=== PATIENT | female | born 1945 | race Caucasian/White ===

== ENCOUNTER 2018-05-10 06:29 | Inpatient (IN) | payer MEDICARE, MEDICAID ==
--- NOTE | 2018-05-10 07:31 | ED Physician Chart ---
ED Chief Complaint/HPI - Patient Information Date Seen:: 05/10/18 Time Seen:: 06:30 Chief Complaint:: Abdominal Pain History of Present Illness:: onset x 2 days of intermittent, diffuse, crampy abdominal pain, N/V/D; no report of trauma, H/As, S/T, neck pain, C/P, SOB, A/C, bleeding, or urinary s/s Allergies:: Allergies Allergy/AdvReac Type Severity Reaction Status Date / Time hydrocodone Allergy Verified 05/10/18 06:41 Vitals:: Vital Signs - 8 hr 05/10/18 06:30 Temp 98.2 F HR 86 RR 18 BP 131/69 O2 Sat % 99 Historian:: Patient, EMS Review:: Nurse's Note Reviewed, EMS run form Reviewed ED Review of Systems - Review of Systems General/Constitutional: No fever, No chills, No weight loss, No weakness, No diaphoresis, No edema, No loss of appetite Skin: No skin lesions, No rash, No bruising Head: No headache, No light-headedness Eyes: No loss of vision, No pain, No diplopia ENT: No earache, No nasal drainage, No sore throat, No tinnitus Neck: No neck pain, No swelling, No thyromegaly, No stiffness, No mass noted Cardio Vascular: No chest pain, No palpitations, No PND, No orthopnea, No edema Pulmonary: No SOB, No cough, No sputum, No wheezing GI: Nausea, Vomiting, Diarrhea, Pain, No melena, No hematochezia, No constipation, No hematemesis G/U: No dysuria, No frequency, No hematuria, No nacturia Drink Mixer: No vaginal discharge, No abnormal vaginal bleed, No contraction Musculoskeletal: No bone or joint pain, No back pain, No muscle pain Endocrine: No polyuria, No polydipsia Psychiatric: No prior psych history, No depression, No anxiety, No suicidal ideation, No homicidal ideation, No auditory hallucination, No visual hallucination Hematopoietic: No bruising, No lymphadenopathy Allergic/Immuno: No urticaria, No angioedema Neurological: No syncope, No focal symptoms, No weakness, No paresthesia, No headache, No seizure, No dizziness, No confusion, No vertigo ED Past Medical History - Past Medical History Obtainable: Yes Past Medical History: HTN, DM, CAD, CVA/TIA, Dyslipidemia, Seizures, Arthritis Family History: HTN Social History: Non Smoker, No Alcohol, No Drug Use, , Care Facility Surgical History: None Psychiatricy History: None Medication: Reviewed Family Medical History - Family Member Mother History Unknown: Yes ED Physical Exam - Physical Examination General/Constitutional: Awake, Well-developed, well-nourished, Alert, No distress, GCS 15, Non-toxic appearing, Ambulatory Head: Atraumatic Eyes: Lids, conjuctiva normal, PERRL, EOMI Skin: Nl inspection, No rash, No skin lesions, No ecchymosis, Well hydrated, No lymphadenopathy ENMT: External ears, nose nl, Nasal exam nl, Lips, teeth, gums nl, Oropharynx nl , Tonsils nl Neck: Nontender, Full ROM w/o pain, No JVD, No nuchal rigidity, No bruit, No mass, No stridor Other Neck comments:: no meningeal signs Respiratory: Nl effort/Exclusion, Clear to Auscultation, No Wheeze/Rhonchi/Rales Cardio Vascular: RRR, No murmur, gallop, rubs, NL S1 S2, Carotid/Femoral/Distal pulses equal bilaterally GI: No tenderness/rebounding/guarding, No organomegaly, No hernia, Normal BS's, Nondistended, No mass/bruits, No McBurney tenderness, Rectum exam nl Other GI comments:: no pulsatile masses : No CVA tenderness Extremities: No tenderness or effusion, Full ROM, normal strength in all extremities, No edema, Normal digits & nails Neuro/Psych: Alert/oriented, DTR's symmetric, Normal sensory exam, Normal motor strength, Judgement/insight normal, Mood normal, Normal gait, No focal deficits Misc: Normal back, No paraspinal tenderness ED Labs/Radiology/EKG Results - Lab Results Comments:: Reviewed - Radiology Results Comments:: + Gallstones; + Right Renal Stones - EKG Interpretations EKG Time:: 07:57 Rate & Rhythm: 80; NSR Comments:: non-specific st-t changes ED Septic Shock - . Is Septic Shock (SBP<90, OR Lactate>4 mmol\L) present?: No - <6hrs of presentation: Vital Signs: Vital Signs - 8 hr 05/10/18 06:30 Temp 98.2 F HR 86 RR 18 BP 131/69 O2 Sat % 99 ED Reassessment (Disposition) - Reassessment Reassessment Condition:: Improved - Diagnosis Diagnosis:: Abdominal Pain; N/V/D; AGE; Gastroenteritis; Cholelithiasis; Nephrolithiasis; Dehydration; Hyponatremia - Aftercare/Follow up Instructions Aftercare/Follow-Up Instructions:: Counseled pt regarding lab results/diagnosis & need follow up, Counseled pt & family regarding lab results/diagnosis & need follow up - Patient Disposition Discharge/Transfer:: Acute Care w/in this hosp Accepting Physician:: Dr. Dominguez Time Called:: 824 Time Responded:: 08:25 Admitted to:: Telemetry Spoke to:: Dr. Dominguez Admitting Medical Physician:: Dr. Dominguez Condition at Disposition:: Stable, Improved
[2018-05-10] MEDS ORDERED: Sodium Chloride 0.9% 1,000 ML IV ONE (07:33)
[2018-05-10 07:56] LABS: % BASOPHILS 3.8 % (0.0-2.0); % LYMPHOCYTES 10.4 % (20.0-50.0); % MONOCYTES 5.6 % (2.0-10.0); % NEUTROPHILS 78.2 % (40.0-80.0); BASOPHILE ABSOLUTE 0.2 Th/cumm (0-0.2); EOSINOPHILE ABSOLUTE 0.1 Th/cmm (0.1-0.4); HEMOGLOBIN 12.1 gm/dL (12-16); LYMPHOCYTE ABSOLUTE 0.6 Th/cmm (1.5-3.0); MEAN CELL VOLUME 73.7 fl (81-100); MEAN CORPUSCULAR HEMOGLOBIN 23.6 pg (27.0-31.0); MEAN PLATELET VOLUME 8.1 fl; MONOCYTE ABSOLUTE 0.3 Th/cmm (0.3-1.0); NEUTROPHILE ABSOLUTE 4.6 Th/cmm (1.8-8.0); PLATELET COUNT 230 Th/cmm (150-400); RED BLOOD COUNT 5.15 Mil/cmm (3.80-5.20); RED CELL DISTRIBUTION WIDTH 16.5 % (11.5-20.0); WHITE BLOOD COUNT 5.8 Th/cmm (4.8-10.8)
[2018-05-10 08:09] LABS: INR 1.02 (0.5-1.4); PROTHROMBIN TIME (TEST) 10.6 SECONDS (9.5-11.5)
[2018-05-10 08:22] LABS: ALB/GLOB RATIO 0.7 (1.0-1.8); ALBUMIN 2.7 gm/dL (3.7-5.3); ALKALINE PHOSPHATASE 87 U/L (34-104); ANION GAP 11.3 (7.0-16.0); BILIRUBIN,TOTAL 0.4 mg/dL (0.3-1.0); BUN - UREA NITROGEN 26 mg/dL (7-25); CARBON DIOXIDE 24.8 mEq/L (21.0-31.0); CHLORIDE 103 mEq/L (98-107); CHOLESTEROL 116 mg/dL (<200); CREATININE KINASE 51 U/L (30-223); GLUCOSE 176 mg/dL (70-105); HDL -HIGH DENSITY LIPOPROTEIN 26 mg/dL (23-92); POTASSIUM SERUM 4.1 mEq/L (3.5-5.1); SGOT 30 U/L (13-39); SGPT/ALT 38 U/L (7-52); SODIUM SERUM 135 mEq/L (136-145); TOTAL PROTEIN,SERUM 6.5 gm/dL (6.0-8.3); TRIGLYCERIDES 110 mg/dL (<150)
[2018-05-10 08:23] LABS: AMYLASE SERUM 45 U/L (29-103); LIPASE 11 U/L (11-82)
--- NOTE | 2018-05-10 09:40 | Diagnostic Imaging Report ---
CHEST X-RAY: AP view INDICATION: pain COMPARISON: None FINDINGS: Patient is rotated. Left basal density is noted. No focal consolidation. Borderline prominent heart is noted. Atherosclerosis is noted. Degenerative changes of the spine are noted. IMPRESSION: Left basal density which may be due to superimposition of soft tissue structures. A small left effusion is less likely. If indicated PA and lateral views may be obtained for further assessment. Borderline prominent heart with atherosclerotic vascular disease.
--- NOTE | 2018-05-10 10:27 | Diagnostic Imaging Report ---
CT abdomen and pelvis without intravenous contrast Indication: Abdominal pain Comparison: None, Technique: Axial images were obtained from the lung bases to the bilateral proximal femurs without IV contrast. Coronal reconstructions were made. total DLP: [id number], [id number] FINDINGS: Hypoventilatory atelectatic changes of the lung bases are noted. Exam is limited due to body habitus and motion. No evidence of focal hepatic lesions. A large gallstone is noted measuring 3.7 cm. No focal splenic lesions. Limited assessment of the pancreas demonstrates no focal pancreatic lesions. Pacreatic gland atrophy is noted. No focal adrenal lesions. Left renal atrophy is seen with numerous left renal stones and calcifications. There is a 2 cm inferior pole left renal cysts. No evidence of left hydronephrosis. There is are small right superior pole renal stones measuring up to 3 mm. There is fullness of right renal collecting system without hydronephrosis. Right perinephric and periureteral inflammatory changes are noted. There is minimal haziness of the mesentery. Enlarged globular uterus is seen with fibrotic changes and evidence of small calcifications. The largest of this fibroid is located to the left with estimated measurement of 7.5 x 7.7 cm. No evidence of bowel obstruction. Mild inflammatory changes of anterior abdominal wall and adjacent omentum is seen with close apposition of bowel loops. The appendix is not well-visualized. No free air or free fluid. Moderate atherosclerosis is noted. Diffuse degenerative changes of the spine are noted. IMPRESSION: Large gallstone. If indicated, ultrasound would further clarify Multiple left renal stones with left renal atrophy. No evidence of left-sided hydronephrosis. Small nonobstructive right renal stones. There is fullness of right renal collecting system without spencer hydronephrosis. Right perinephric and right periureteral inflammatory changes are also noted. Enlarged globular uterus with large fibroid on the left side. Recommend short-term follow-up with ultrasound. Mild nonspecific inflammatory changes along the anterior abdominal wall extending to the omental region with close apposition of bowel loops in this region. The significance of this finding should correlate clinically. Minimal haziness nonspecific inflammatory changes of the mesenteric Moderate atherosclerosis. Diffuse degenerative changes.
[2018-05-10] MEDS ORDERED: cefTRIAXone 1 GM in Sodium Chloride 0.9% 50 ML IV ONE (12:04)
[2018-05-10] MEDS: D5-0.45NS 1,000 ML IV SCH (13:30)
[2018-05-10] MEDS ORDERED: Morphine Sulfate 2 mg/mL 1mL Syr IVP PRN (16:54)
--- NOTE | 2018-05-10 17:48 | History & Physical ---
ADMIT DATE: 05/10/2018 CHIEF COMPLAINT: Abdominal pain and nausea. HISTORY OF PRESENT ILLNESS: A 72-year-old female, who [facility] at [facility], has a diagnosis of diabetes, hypertension, hyperlipidemia, history of uterine fibroid, CVA, seizure disorder, does not talk because of her stroke and complain of pain in the right upper part of the abdomen associated with nausea. The pain was 6-7/10. According to patient's son, the patient has this pain on and off for a long time. Never had any attention until the patient was sent to Emergency Room where the patient was worked up and noted to have a large renal stone along with kidney stone on the left also noted as well. The patient has been admitted to the hospital for further treatment. PAST MEDICAL HISTORY: Remarkable for: 1. Diabetes. 2. Hypertension. 3. Hyperlipidemia. 4. CVA. 5. Seizure disorder. 6. DJD. 7. Uterine fibroid. 8. History of cardiac arrhythmia. 9. Dysarthria. MEDICATIONS: At home taking Neurontin, insulin, lisinopril, progestin, omeprazole, Dilantin, senna, Colace, milk of magnesia, betamethasone cream. ALLERGIES: THE PATIENT IS ALLERGIC TO HYDROCODONE. SOCIAL HISTORY: The patient is a resident of detention. No smoking, alcohol, or drug use. FAMILY HISTORY: Remarkable for diabetes. REVIEW OF SYSTEMS: According to the patient's son who is at bedside, the patient has mostly abdominal pain, but no chest pain, no shortness of breath, no palpitation, no dizziness, no seizure, no syncopal episode, no history of weight loss or weight gain. PHYSICAL EXAMINATION: GENERAL: Alert, awake, lying in the bed without any acute distress. VITAL SIGNS: Temperature 98.7, pulse 77, respiratory rate 18, blood pressure 146/55. Please note the patient has received 2 mg of IV morphine before I came to see the patient. HEENT: Normocephalic, atraumatic. Extraocular muscles are intact. Tongue was pink and coated. Poor dentition noted. No oral lesion, no exudate. No sinus tenderness. NECK: Supple, no JVD, no hepatojugular reflex. No lymphadenopathy, thyromegaly or carotid bruit. . HEART: Both heart sounds are irregularly irregular. CHEST: Lung equal in expansion, no expiratory wheezing. ABDOMEN: Soft. No guarding, no rigidity. Right upper quadrant tenderness noted. Bowel sounds were present. No palpable mass. EXTREMITIES: No edema, peripheral pulses are +1. No calf tenderness. NEUROLOGIC: Alert, awake, follows commands. Right-sided weakness noted with some spasticity. AVAILABLE DIAGNOSTIC DATA: Has been reviewed. CLINICAL IMPRESSION: 1. Right upper quadrant abdominal pain with nausea, vomiting. Workup has revealed cholelithiasis. 2. Left kidney renal stones. 3. Diabetes. 4. Hypertension. 5. Obesity. 6. Cerebrovascular accident with left-sided weakness. 7. Degenerative joint disease. 8. Obesity. 9. Seizure disorder. 10. Uterine fibroid with recurrent vaginal bleeding. PLAN: 1. Admit this patient to telemetry. 2. Cardiac monitoring. 3. General Surgery, Urology, GI consult requested. 4. IV antibiotic with Unasyn. 5. HIDA scan. 6. Keep her n.p.o. 7. Diabetes management. 9. General nursing care. 10. Seizure medication. 11. Seizure precaution. 12. Appropriate home medicine reconciliation. 13. Follow lab 14. Care plan reviewed and discussed with the patient and her son at bedside. JOB# [id number]
[2018-05-10] MEDS: Ampicillin Sodium/Sulbactam 3 GM in Sodium Chloride 0.9% 100 ML IV SCH (18:03)
[2018-05-10 18:49] LABS: URINE MICROSCOPIC INDICATED? YES
[2018-05-10 18:50] LABS: URINE BILIRUBIN NEGATIVE (NEGATIVE); URINE BLOOD LARGE (NEGATIVE); URINE GLUCOSE (UA) NEGATIVE (NEGATIVE); URINE KETONE NEGATIVE (NEGATIVE); URINE LEUKOCYTE ESTERASE MODERATE (NEGATIVE); URINE NITRATE POSITIVE (NEGATIVE); URINE PH 5.5 (4.6 - 8.0); URINE PROTEIN 100 mg/dL (NEGATIVE)
[2018-05-10 19:11] LABS: URINE CLARITY HAZY (CLEAR); URINE COLOR YELLOW
[2018-05-10 19:18] LABS: URINE EPITHELIAL CELLS MODERATE /lpf (FEW); URINE WBC 50-100 /hpf (0-5)
[2018-05-10 19:19] LABS: URINE BACTERIA MODERATE /hpf (NONE SEEN); URINE SOURCE CATH
[2018-05-10] MEDS: INSULIN ASPART, RECOMBINANT 100 UNITS/ML SUBQ SCH (22:37)
[2018-05-11] MEDS: INSULIN ASPART SLIDING SCALE 100 UNITS/ML UNIT SUBQ SCH ×5 (01:15→20:27)
[2018-05-11] MEDS: Ampicillin Sodium/Sulbactam 3 GM in Sodium Chloride 0.9% 100 ML IV SCH ×5 (01:16→23:25)
[2018-05-11] MEDS: D5-0.45NS 1,000 ML IV SCH ×2 (05:45→16:29)
[2018-05-11] MEDS: INSULIN ASPART, RECOMBINANT 100 UNITS/ML SUBQ SCH ×4 (06:56→21:00)
--- NOTE | 2018-05-11 11:14 | Diagnostic Imaging Report ---
Abdominal ultrasound HISTORY: Pain The exam is extremely limited due to patient's size, body habitus, and difficulty in cooperation. Very limited views of the liver provided. No obvious focal lesions. There is suboptimal delineation of the gallbladder. However, there is suggestion of an intraluminal echogenic density that may be associated with cholelithiasis. Common bile duct cannot be seen. Pancreas cannot be clearly visualized. Suboptimal delineation the entire margins of the right kidney with no obvious focal lesions or hydronephrosis. The left kidney cannot be seen. The spleen was not clearly visualized. No other obvious abnormalities. IMPRESSION: 1. Extremely limited exam due to patient size, body habitus, and difficulty in cooperation 2. Very limited exam of the gallbladder with suggestion of an intraluminal echogenic density probably related to cholelithiasis which would correspond to findings noted on the earlier CT scan of May 10, 2018. 3. See additional limitations of the exam noted above
--- NOTE | 2018-05-11 11:32 | Consultation ---
DATE OF CONSULTATION: 05/11/2018 INPATIENT GASTROINTESTINAL CONSULTATION CONSULTING PHYSICIAN: Dr. Dominguez. REASON FOR CONSULTATION: Abdominal pain in the right upper quadrant, nausea. HISTORY OF PRESENT ILLNESS: The patient is a 72-year-old female with past medical history significant for previous stroke, aphasia, hypertension, hyperlipidemia and seizure disorder, who comes into the hospital complaining of right upper quadrant abdominal pain. It is somewhat difficult to communicate with the patient as she is aphasic, although she is able to answer yes or no questions. She reports that she has been having pain in the right upper quadrant for about 5-6 months and that this is associated with some nausea. She denies any outright vomiting. She does not know if food or eating exacerbates her symptoms, although she thinks this might be so. She reports having a colonoscopy previously, which was about 5 years ago and thinks that this was a normal exam and has not had an upper endoscopy. At the current time, she still has right upper quadrant pain, but no vomiting. She denies any hematochezia or melena. PAST MEDICAL HISTORY: Diabetes, hypertension, hyperlipidemia, previous stroke with aphasia, seizure disorder, degenerative joint disease, uterine fibroids, cardiac arrhythmia. PAST SURGICAL HISTORY: No history of abdominal surgeries. FAMILY HISTORY: Noncontributory. SOCIAL HISTORY: The patient is a permanent resident of a nursing facility. Denies any history of smoking or illicit drug use. REVIEW OF SYSTEMS: A 12-point review of system was performed with the patient and is negative other than the pertinent positives mentioned in the history of present illness. CURRENT MEDICATIONS: Include Unasyn, gabapentin, insulin, lisinopril, morphine, ondansetron, Protonix, Dilantin, senna. PHYSICAL EXAMINATION: VITAL SIGNS: Blood pressure is 110/85, pulse 68 beats per minute, respiratory rate of 18, temperature is 97.3, oxygenation 97%. GENERAL: The patient is at 30 degrees in bed, alert and oriented x 3. She appears somewhat anxious. HEAD, EARS, EYES, NOSE AND THROAT: Normocephalic and atraumatic appearing head. Pupils are equal and reactive to light. Extraocular muscles are intact. Moist mucous membranes. NECK: Difficult to assess JVD given the body habitus. There is no obvious thyromegaly or lymphadenopathy. CHEST: There are some crackles at the bases bilaterally. CARDIOVASCULAR: S1 and S2 are present. Regular rate and rhythm. ABDOMEN: Obese. There is tenderness to palpation in the right upper quadrant. There is no guarding, no rebound or fluid distention. EXTREMITIES: Nonpitting edema is noted bilaterally. Pulses are not present. SKIN: There is no obvious jaundice. LABORATORY DATA: His white blood cell count is 5.8, hemoglobin 12.1, platelet count is 230. INR is 1.02. Sodium is 135, BUN 26, creatinine 1.0. AST is 30, ALT 38, total bilirubin 0.4, lipase is 11. IMAGING STUDIES: An abdomen and pelvis CT scan was performed without contrast and it shows limited assessment of the pancreas, although there are no focal lesions; there is pancreatic gland atrophy; there is a 2 cm inferior pole of the left renal cyst; there is an enlarged globular uterus with fibrotic changes and evidence of small calcifications; and there is a large gallstone measuring 3.7 cm. IMPRESSION: This is a 72-year-old female with previous stroke and aphasia, obesity, type 2 diabetes, who is admitted to the hospital with right upper quadrant pain and nausea. 1. Right upper quadrant pain. 2. Nausea. 3. Stroke with aphasia. 4. Type 2 diabetes. 5. Hypertension. 6. Obesity. DISCUSSION: The differential diagnosis for this patient's presentation includes symptomatic cholelithiasis or acute cholecystitis, peptic ulcer disease, gastritis, infectious gastroenteritis or less likely a malignancy of the gastrointestinal system. At this point, given the location of her pain and clinical syndrome as well as the CT findings, I think that the most likely cause of her issue is probably the large gallstone in the gallbladder. This type of stone can easily intermittently obstruct the gallbladder neck and be quite painful when the gallbladder contracts. We can get an abdominal ultrasound to further clarify the anatomy of the gallbladder and to look for any evidence of acute cholecystitis. Regardless, I think that the appropriate therapy would be cholecystectomy if the patient is a surgical candidate. RECOMMENDATIONS: 1. Agree with surgical consultation for consideration of cholecystectomy. 2. We will order an abdominal ultrasound for further imaging of the gallbladder. 3. The LFTs are normal and thus I do not suspect any biliary duct dilation or obstruction. 4. The patient has had colonoscopy before and she is not currently anemic or having any GI bleed; thus, I do not think endoscopy is required for this presentation. 5. The patient can be put on clears if there is no surgery planned for today, which I do not imagine there would be after her ultrasound. I will continue to follow. Thank you for allowing me to participate in her care. Please call me with any further questions. [facility]# [id number]
--- NOTE | 2018-05-11 12:02 | Progress Notes ---
DATE: 05/11/2018 PATIENT'S IDENTIFICATION: A 72-year-old female. SUBJECTIVE: The patient seen and examined. The patient is lying in the bed. The patient has minimal discomfort in the right upper quadrant area. The patient has been seen by high frequency mill operator. Surgical consult is currently pending. The patient currently denies any nausea, vomiting. Denies any fever or chills. OBJECTIVE: On today's exam, VITAL SIGNS: Temperature 97.3, pulse 68, respiratory rate 18, blood pressure 130/85. HEENT: No facial asymmetry. Poor dentition noted. Diffuse hair loss noted. NECK: Supple. No JVD. HEART: Both heart sounds are regular. CHEST AND LUNGS: Equal in expansion, no expiratory wheezing. ABDOMEN: Soft. No guarding, no rigidity. Bowel sounds are present. No palpable mass. EXTREMITIES: No edema. NEUROLOGIC: Left-sided weakness noted. AVAILABLE DIAGNOSTIC DATA: Glucoscan is reviewed. Urinalysis consistent with urinary tract infection. CLINICAL IMPRESSIONS: 1. Right upper quadrant abdominal pain with large gallstones, needs further evaluation. 2. Nephrolithiasis on the left kidney. 3. Urinary tract infection. 4. Diabetes mellitus. 5. Degenerative joint disease. 6. Obesity. 7. Hypertension. 8. History of cerebrovascular accident with right-sided weakness. 9. Seizure disorder. 10. Cardiac arrhythmia. PLAN: The patient is currently admitted to Telemetry Unit. We will put the patient on n.p.o. for now. Continue IV fluid, IV antibiotic. Await HIDA scan along with hospice care sales consultant opinion. We will give further recommendations based on other diagnostic data available. In the view of her normal liver function tests, there is no evidence of common bile duct obstruction. The patient's surgical consult is pending and the patient was taking Xarelto, which if the patient goes for surgery, the patient still needs to wait for 72 hours prior to consideration of surgery. We will discuss with patient's son as well. Continue to provide current treatment plan as well as chronic disease management. [facility]# [id number]
[2018-05-11] MEDS ORDERED: HYDROmorphone 1 mg/mL 1mL Syr IVP PRN (14:40)
--- NOTE | 2018-05-11 16:08 | Consultation ---
DATE OF CONSULTATION: 05/11/2018 REASON FOR CONSULTATION: Seen for abdominal pain and kidney stones. INDICATIONS: The patient is a 72-year-old admitted with abdominal pain located in the right upper quadrant. Besides the history is very difficult to interpret as the patient is nonverbal and speaks with sign language as well as currently having a HIDA scan done and unable to move. The pain was described as intermittent and crampy. There was no nausea, vomiting or diarrhea and no other precipitating factors. No urinary complaints. Workup after admission evaluation has revealed nonfunctioning left kidney and normal right kidney, both are not obstructed. Both have stones and a large gallbladder stone as well. Apparently, the pain has been going on for a long time according to the patient's son who seems to have some more information on her. Currently, the pain is well controlled in the hospital and there are no other complaints of nausea, vomiting or diarrhea or urinary issues. MEDICAL HISTORY: Positive for diabetes, hypertension and hyperlipidemia. She had a stroke and seizure disorder, leaving her aphasic. History of arthritis and bedbound condition, but without any bedsores. History of cardiac arrhythmias and history of uterine fibroids. HOME MEDICATIONS: Include Neurontin, insulin, Dilantin, omeprazole and progestin. She also takes lisinopril. ALLERGIES: HYDROCODONE. SOCIAL HISTORY: She is a [facility] resident and bedbound. No significant tobacco, alcohol or drug problems. SURGICAL HISTORY: Unknown. REVIEW OF SYSTEMS: No fever, chills or weight loss. Denied headache or seizures, although she has a history. No vision changes or sore throat. Abdominal pain in the right upper quadrant, grade 7/10, generalized crampy, intermittent. No nausea or vomiting. No chest pain, coughing or shortness of breath. History is confusing about the nausea, vomiting and diarrhea since some places these are listed as present and in other places as not present. No dysuria or hematuria. No vaginal bleeding. Generalized joint pains. No skin rashes. PHYSICAL EXAMINATION: GENERAL: She is morbidly obese with a BMI of 34.7 kilograms per meter square, temperature 97.5, heart rate 74, blood pressure 132/82. No fever recorded in the hospital. HEAD AND NECK: Normocephalic. Trachea central. Pupils equal and reactive. No jaundice. Thyroid and lymph nodes not palpable. Carotid bruit absent. CHEST: Symmetrical. LUNGS: Clear. No rales or rhonchi. HEART: Sounds normal in sinus rhythm, no murmur. ABDOMEN: Massively obese and soft. Right upper quadrant mild tenderness. No organomegaly, mass, or hernia can be appreciated due to the large abdomen. EXTREMITIES: 2+ edema. NEUROLOGIC: Nonfocal; however, difficult to test as she is having the scan and apparently is able to move her upper extremities, but I do not know about residual neurological deficit of hemiplegia or otherwise. LABORATORY DATA: White count 5.8, hemoglobin 12.1, platelets 230. Sodium 135. Electrolytes otherwise normal. BUN 26, creatinine 1.0. Sugar 176, 133, 139 and 149, well controlled. Liver functions are normal. Albumin is low at 2.7. Urine showed large amount of blood with 10-25 red cells and 50-100 white cells, moderate bacteria. No cultures are back. CT scan of the abdomen and pelvis shows a large stone in the gallbladder and multiple stones in the left kidney, which is atrophied and yet there is no hydronephrosis or obstruction. There are small nonobstructive stones in the right kidney with some fullness, but no hydronephrosis. There are some perinephric stranding and inflammatory changes. IMPRESSION: 1. Right upper quadrant pain, possible etiology is gallbladder and the right kidney. She may have passed stone from the right kidney as she has multiple stones here, but currently does not have obstruction. The gallbladder will be ruled out as the source after her workup is completed. From the urologic standpoint, I would treat any urinary tract infection if it is clinically relevant. In her case, it is not as there is no fever or white count elevation. I would treat her symptomatically for the pain and institute Flomax as an aid in passing of stone if she has another one come out of the kidney and go through the ureter. Currently, no active urologic intervention is indicated. 2. Morbid obesity. 3. Diabetes. 4. Hypertension. 5. Hyperlipidemia. 6. Stroke and residual neurologic deficits with dysarthria. 7. Generalized arthritis. 8. Uterine fibroids. Has significant other risk factors. JOB# [id number]
[2018-05-12] MEDS: Ampicillin Sodium/Sulbactam 3 GM in Sodium Chloride 0.9% 100 ML IV SCH ×2 (05:12→12:01)
[2018-05-12] MEDS: INSULIN ASPART, RECOMBINANT 100 UNITS/ML SUBQ SCH ×4 (07:05→21:59)
[2018-05-12] MEDS: INSULIN ASPART SLIDING SCALE 100 UNITS/ML UNIT SUBQ SCH ×4 (07:05→21:59)
[2018-05-12 07:07] LABS: % BASOPHILS 1.1 % (0.0-2.0); % LYMPHOCYTES 22.2 % (20.0-50.0); % MONOCYTES 10.2 % (2.0-10.0); % NEUTROPHILS 59.5 % (40.0-80.0); EOSINOPHILE ABSOLUTE 0.3 Th/cmm (0.1-0.4); HEMATOCRIT 33.3 % (41.0-60); HEMOGLOBIN 10.9 gm/dL (12-16); LYMPHOCYTE ABSOLUTE 0.8 Th/cmm (1.5-3.0); MEAN CELL VOLUME 75.5 fl (81-100); MEAN CORPUSCULAR HEMOGLOBIN 24.6 pg (27.0-31.0); MEAN CORPUSCULAR HGB CONC 32.6 pg (28.0-36.0); MEAN PLATELET VOLUME 8.3 fl; MONOCYTE ABSOLUTE 0.4 Th/cmm (0.3-1.0); NEUTROPHILE ABSOLUTE 2.2 Th/cmm (1.8-8.0); PLATELET COUNT 186 Th/cmm (150-400); RED BLOOD COUNT 4.41 Mil/cmm (3.80-5.20); RED CELL DISTRIBUTION WIDTH 16.6 % (11.5-20.0)
[2018-05-12 07:28] LABS: ALB/GLOB RATIO 0.7 (1.0-1.8); ALBUMIN 2.1 gm/dL (3.7-5.3); ALKALINE PHOSPHATASE 67 U/L (34-104); ANION GAP 8.3 (7.0-16.0); BILIRUBIN,TOTAL 0.2 mg/dL (0.3-1.0); BUN - UREA NITROGEN 16 mg/dL (7-25); CALCIUM SERUM 6.9 mg/dL (8.6-10.3); CARBON DIOXIDE 23.1 mEq/L (21.0-31.0); CHLORIDE 108 mEq/L (98-107); CREATININE - SERUM 0.9 mg/dL (0.6-1.2); GLUCOSE 143 mg/dL (70-105); POTASSIUM SERUM 3.4 mEq/L (3.5-5.1); SGOT 45 U/L (13-39); SGPT/ALT 60 U/L (7-52); SODIUM SERUM 136 mEq/L (136-145); TOTAL PROTEIN,SERUM 5.1 gm/dL (6.0-8.3)
[2018-05-12 07:39] LABS: WHITE BLOOD COUNT 3.7 Th/cmm (4.8-10.8)
--- NOTE | 2018-05-12 08:24 | GI Progress Note ---
Subjective - Review of Systems Service Date: 05/12/18 Subjective: Still reporting RUQ pain Objective - Results Result Diagrams: 05/12/18 05:55 05/12/18 05:55 Recent Labs: Laboratory Last Values WBC 3.7 Th/cmm (4.8-10.8) L 05/12/18 05:55 RBC 4.41 Mil/cmm (3.80-5.20) 05/12/18 05:55 Hgb 10.9 gm/dL (12-16) L 05/12/18 05:55 Hct 33.3 % (41.0-60) L 05/12/18 05:55 MCV 75.5 fl (81-100) L 05/12/18 05:55 MCH 24.6 pg (27.0-31.0) L 05/12/18 05:55 MCHC Differential 32.6 pg (28.0-36.0) 05/12/18 05:55 RDW 16.6 % (11.5-20.0) 05/12/18 05:55 Plt Count 186 Th/cmm (150-400) 05/12/18 05:55 MPV 8.3 fl 05/12/18 05:55 Neutrophils % 59.5 % (40.0-80.0) 05/12/18 05:55 Lymphocytes % 22.2 % (20.0-50.0) 05/12/18 05:55 Monocytes % 10.2 % (2.0-10.0) H 05/12/18 05:55 Eosinophils % 7.0 % (0.0-5.0) H 05/12/18 05:55 Basophils % 1.1 % (0.0-2.0) 05/12/18 05:55 PT 10.6 SECONDS (9.5-11.5) 05/10/18 07:45 INR 1.02 (0.5-1.4) 05/10/18 07:45 Sodium 136 mEq/L (136-145) 05/12/18 05:55 Potassium 3.4 mEq/L (3.5-5.1) L 05/12/18 05:55 Chloride 108 mEq/L (98-107) H 05/12/18 05:55 Carbon Dioxide 23.1 mEq/L (21.0-31.0) 05/12/18 05:55 Anion Gap 8.3 (7.0-16.0) 05/12/18 05:55 BUN 16 mg/dL (7-25) 05/12/18 05:55 Creatinine 0.9 mg/dL (0.6-1.2) 05/12/18 05:55 Est GFR ( Amer) TNP 05/12/18 05:55 Est GFR (Non-Af Amer) TNP 05/12/18 05:55 BUN/Creatinine Ratio 17.8 05/12/18 05:55 Glucose 143 mg/dL (70-105) H 05/12/18 05:55 POC Glucose 130 MG/DL (70 - 105) H 05/12/18 06:48 Calcium 6.9 mg/dL (8.6-10.3) L 05/12/18 05:55 Total Bilirubin 0.2 mg/dL (0.3-1.0) L 05/12/18 05:55 AST 45 U/L (13-39) H 05/12/18 05:55 ALT 60 U/L (7-52) H 05/12/18 05:55 Alkaline Phosphatase 67 U/L (34-104) 05/12/18 05:55 Creatine Kinase 51 U/L (30-223) 05/10/18 07:45 Troponin I 0.01 ng/mL (0.01-0.05) 05/10/18 07:45 B-Natriuretic Peptide 72.6 pg/mL (5.0-100.0) 05/10/18 07:45 Total Protein 5.1 gm/dL (6.0-8.3) L 05/12/18 05:55 Albumin 2.1 gm/dL (3.7-5.3) L 05/12/18 05:55 Globulin 3.0 gm/dL 05/12/18 05:55 Albumin/Globulin Ratio 0.7 (1.0-1.8) L 05/12/18 05:55 Triglycerides 110 mg/dL (<150) 05/10/18 07:45 Cholesterol 116 mg/dL (<200) 05/10/18 07:45 LDL Cholesterol Direct 77 mg/dL (75-193) 05/10/18 07:45 HDL Cholesterol 26 mg/dL (23-92) 05/10/18 07:45 Amylase 45 U/L (29-103) 05/10/18 07:45 Lipase 11 U/L (11-82) 05/10/18 07:45 Urine Source CATH 05/10/18 18:37 Urine Color YELLOW 05/10/18 18:37 Urine Clarity HAZY (CLEAR) 05/10/18 18:37 Urine pH 5.5 (4.6 - 8.0) 05/10/18 18:37 Ur Specific [place] 1.020 (1.005-1.030) 05/10/18 18:37 Urine Protein 100 mg/dL (NEGATIVE) H 05/10/18 18:37 Urine Glucose (UA) NEGATIVE mg/dL (NEGATIVE) 05/10/18 18:37 Urine Ketones NEGATIVE mg/dL (NEGATIVE) 05/10/18 18:37 Urine Blood LARGE (NEGATIVE) H 05/10/18 18:37 Urine Nitrate POSITIVE (NEGATIVE) H 05/10/18 18:37 Urine Bilirubin NEGATIVE (NEGATIVE) 05/10/18 18:37 Urine Urobilinogen 1.0 E.U./dL (0.2 - 1.0) 05/10/18 18:37 Ur Leukocyte Esterase MODERATE (NEGATIVE) H 05/10/18 18:37 Urine RBC 10-25 /hpf (0-5) H 05/10/18 18:37 Urine WBC 50-100 /hpf (0-5) H 05/10/18 18:37 Ur Epithelial Cells MODERATE /lpf (FEW) 05/10/18 18:37 Urine Bacteria MODERATE /hpf (NONE SEEN) H 05/10/18 18:37 Phenytoin 7.3 ug/ml (10.0-20.0) L 05/10/18 07:45 - Physical Exam Vitals and I&O: Vital Signs Temp 98.1 F 05/12/18 07:41 Pulse 80 05/12/18 07:41 Resp 18 05/12/18 07:41 BP 128/73 05/12/18 07:41 Pulse Ox 98 05/12/18 07:41 Intake & Output 05/11/18 05/12/18 05/12/18 18:59 06:59 18:59 Intake Total 1205 100 Balance 1205 100 Weight (lbs) 86.636 kg 181.437 kg Intake: Intake, IV Amount 1005 100 Ampicillin Sodium/ 200 100 Sulbactam 3 gm In Sodium Chloride 0.9% 100 ml @ 100 mls/hr IV Q6HR [facility] Rx #:[id number] D5-0.45NS 1,000 ml @ 75 805 mls/hr IV .[id number] [facility] Rx #:[id number] Oral 200 Other: # Voids 3 4 # Bowel Movements 0 0 Weight Source Bedscale Bedscale Active Medications: Current Medications Gabapentin (Neurontin) 300 mg PO BID [facility] Stop: 07/09/18 16:59 Last Admin: 05/11/18 16:29 Dose: 300 mg Hydromorphone HCl (Dilaudid) 1 mg IVP Q4HR PRN PRN Reason: PAIN Stop: 07/10/18 14:39 Dextrose/Sodium Chloride (D5-0.45ns) 1,000 mls @ 75 mls/hr IV .[id number] [facility] Stop: 07/09/18 12:19 Last Admin: 05/11/18 16:29 Dose: 75 mls/hr Ampicillin Sodium/Sulbactam (Sodium 3 gm/ Sodium Chloride) 100 mls @ 100 mls/ hr IV Q6HR [facility] Stop: 07/09/18 17:59 Last Admin: 05/12/18 05:12 Dose: 100 mls/hr Insulin Aspart (Novolog Insulin Sliding Scale) 0 units SUBQ ACHS [facility]; Protocol Stop: 07/09/18 20:59 Last Admin: 05/12/18 07:05 Dose: Not Given Insulin Aspart (Novolog) 0 units SUBQ ACHS [facility]; Protocol Stop: 07/09/18 20:59 Last Admin: 05/12/18 07:05 Dose: Not Given Lisinopril (Zestril) 10 mg PO DAILY [facility] Stop: 07/09/18 16:59 Last Admin: 05/11/18 09:09 Dose: 10 mg Morphine Sulfate (Morphine) 2 mg IVP Q4HR PRN PRN Reason: Abdominal Pain Stop: 07/09/18 16:53 Norethindrone Acetate (Aygestin) 5 mg PO DAILY [facility]; Protocol Stop: 07/10/18 08:59 Ondansetron HCl (Zofran) 4 mg IV Q6H PRN PRN Reason: Nausea / Vomiting Stop: 09/22/18 16:54 Pantoprazole Sodium (Protonix) 40 mg IVP DAILY [facility] Stop: 07/09/18 16:59 Last Admin: 05/11/18 09:09 Dose: 40 mg Phenytoin (Dilantin) 200 mg PO HS [facility] Stop: 07/09/18 20:59 Last Admin: 05/11/18 20:28 Dose: 200 mg Phenytoin (Dilantin) 150 mg PO DAILY [facility] Stop: 07/09/18 16:59 Last Admin: 05/11/18 09:09 Dose: 150 mg Senna (Senna) 17.2 mg PO BID [facility] Stop: 07/09/18 16:59 Last Admin: 05/11/18 16:29 Dose: 17.2 mg Tamsulosin HCl (Flomax) 0.4 mg PO HS [facility] Stop: 07/10/18 20:59 Last Admin: 05/11/18 20:27 Dose: 0.4 mg General: Alert HEENT: Atraumatic, PERRLA Cardiovascular: Regular rate Abdomen: Bowel sounds, Soft, Tender, no Hepatomegaly, no Splenomegaly, no Distended, no Rebound Extremities: no Clubbing, no Cyanosis Skin: no Rash Assessment/Plan - Assessment Assessment: # RUQ pain # Cholelithiasis # Kidney stones # CVA with aphasia Suspect her large gallstone as source of her RUQ pain. She has no biliary dilation, and no evidence of obstructive jaundice by labs. US limited due to body habitus, but again demonstrated is large GB stone. HIDA scan is pending. Plan: - suggest surgical consultation to eval for lap burton for symptomatic cholelithiasis - trend LFTs - f/u HIDA - protonix - advance diet unless surgery is planned
[2018-05-12] MEDS: D5-0.45NS 1,000 ML IV SCH (08:39)
--- NOTE | 2018-05-12 09:33 | Diagnostic Imaging Report ---
Radionuclide biliary scan (HIDA scan) HISTORY: Pain 5.2 mCi technetium labeled biliary agent was using the exam. There is normal hepatic uptake and clearance. There is normal excretion of nuclide into the gallbladder, common bile duct, and small bowel. IMPRESSION: Normal examination
[2018-05-12 12:30] VITALS: BP 141/81
[2018-05-12] MEDS ORDERED: Gentamicin 190 MG in Sodium Chloride 0.9% 100 ML IV SCH (14:00)
[2018-05-12] MEDS: Gentamicin 160 MG in Sodium Chloride 0.9% 100 ML IV SCH (14:09)
--- NOTE | 2018-05-12 23:29 | Progress Notes ---
DATE: 05/12/2018 SUBJECTIVE: The patient seen and examined. The patient's urine cultures came out positive for MDRO E. coli. HIDA scan was done, which did reveal normal HIDA scan. [employer] has seen the patient and according to the helicopter mechanic opinon, the patient's large gallstone is a source of her right upper quadrant pain. Recommended to have surgical consultation. The patient currently denies no new complaint. The patient was admitted on the day of hospital. The patient does have urinary tract infection. PHYSICAL EXAMINATION: VITAL SIGNS: Temperature 98.3, pulse 84, respiratory rate is 18, blood pressure 132/78. HEENT: No facial asymmetry. NECK: Supple, no JVD. HEART: Regular. CHEST AND LUNGS: Equal in expansion. No expiratory wheezing. ABDOMEN: Soft. No guarding or rigidity. Bowel sounds are present. No palpable mass. EXTREMITIES: No edema. CLINICAL IMPRESSION: 1. Right upper quadrant pain secondary to large gallstone. 2. Urinary tract infection, MDRO Escherichia coli. 3. Diabetes. 4. Hypertension. 5. Obesity. 6. Seizure disorder. 7. Cerebrovascular accident with right-sided weakness. PLAN: The patient is to have appropriate IV antibiotic with gentamicin along with Unasyn. Continue the surgical consult for cholecystectomy, hold Xarelto for now. Cardiology consultation for cardiac clearance. Continue other medication as prescribed. Care plan reviewed and discussed with RN and the patient's family. JOB# [id number]
[2018-05-13] MEDS: D5-0.45NS 1,000 ML IV SCH (00:16)
[2018-05-13] MEDS: INSULIN ASPART SLIDING SCALE 100 UNITS/ML UNIT SUBQ SCH ×3 (07:37→17:19)
[2018-05-13] MEDS: INSULIN ASPART, RECOMBINANT 100 UNITS/ML SUBQ SCH (07:38)
[2018-05-13] MEDS: Gentamicin 160 MG in Sodium Chloride 0.9% 100 ML IV SCH (08:19)
[2018-05-13 08:29] LABS: HEMOGLOBIN 11.1 gm/dL (12-16); MONOCYTE ABSOLUTE 0.3 Th/cmm (0.3-1.0)
[2018-05-13 08:44] LABS: BUN - UREA NITROGEN 13 mg/dL (7-25); CALCIUM SERUM 7.1 mg/dL (8.6-10.3); CARBON DIOXIDE 23.8 mEq/L (21.0-31.0); CHLORIDE 109 mEq/L (98-107); CREATININE - SERUM 0.9 mg/dL (0.6-1.2); GLUCOSE 143 mg/dL (70-105); POTASSIUM SERUM 3.8 mEq/L (3.5-5.1); SODIUM SERUM 136 mEq/L (136-145)
[2018-05-13 08:47] LABS: % LYMPHOCYTES 25.1 % (20.0-50.0); % NEUTROPHILS 59.6 % (40.0-80.0); HEMATOCRIT 34.2 % (41.0-60); MEAN CELL VOLUME 74.1 fl (81-100); MEAN CORPUSCULAR HGB CONC 32.4 pg (28.0-36.0); MEAN PLATELET VOLUME 7.7 fl; PLATELET COUNT 187 Th/cmm (150-400); RED BLOOD COUNT 4.62 Mil/cmm (3.80-5.20); RED CELL DISTRIBUTION WIDTH 16.6 % (11.5-20.0)
[2018-05-13 08:48] LABS: % BASOPHILS 0.7 % (0.0-2.0); % EOSINOPHILS 6.5 % (0.0-5.0); % MONOCYTES 8.1 % (2.0-10.0); NEUTROPHILE ABSOLUTE 2.4 Th/cmm (1.8-8.0)
--- NOTE | 2018-05-13 09:25 | GI Progress Note ---
Subjective - Review of Systems Service Date: 05/13/18 Subjective: No overnight events, still with RUQ pain Objective - Results Result Diagrams: 05/13/18 08:20 05/13/18 08:20 Recent Labs: Laboratory Last Values WBC 4.0 Th/cmm (4.8-10.8) L 05/13/18 08:20 RBC 4.62 Mil/cmm (3.80-5.20) 05/13/18 08:20 Hgb 11.1 gm/dL (12-16) L 05/13/18 08:20 Hct 34.2 % (41.0-60) L 05/13/18 08:20 MCV 74.1 fl (81-100) L 05/13/18 08:20 MCH 24.0 pg (27.0-31.0) L 05/13/18 08:20 MCHC Differential 32.4 pg (28.0-36.0) 05/13/18 08:20 RDW 16.6 % (11.5-20.0) 05/13/18 08:20 Plt Count 187 Th/cmm (150-400) 05/13/18 08:20 MPV 7.7 fl 05/13/18 08:20 Neutrophils % 59.6 % (40.0-80.0) 05/13/18 08:20 Lymphocytes % 25.1 % (20.0-50.0) 05/13/18 08:20 Monocytes % 8.1 % (2.0-10.0) 05/13/18 08:20 Eosinophils % 6.5 % (0.0-5.0) H 05/13/18 08:20 Basophils % 0.7 % (0.0-2.0) 05/13/18 08:20 PT 10.6 SECONDS (9.5-11.5) 05/10/18 07:45 INR 1.02 (0.5-1.4) 05/10/18 07:45 Sodium 136 mEq/L (136-145) 05/13/18 08:20 Potassium 3.8 mEq/L (3.5-5.1) 05/13/18 08:20 Chloride 109 mEq/L (98-107) H 05/13/18 08:20 Carbon Dioxide 23.8 mEq/L (21.0-31.0) 05/13/18 08:20 Anion Gap 7.0 (7.0-16.0) 05/13/18 08:20 BUN 13 mg/dL (7-25) 05/13/18 08:20 Creatinine 0.9 mg/dL (0.6-1.2) 05/13/18 08:20 Est GFR ( Amer) TNP 05/13/18 08:20 Est GFR (Non-Af Amer) TNP 05/13/18 08:20 BUN/Creatinine Ratio 14.4 05/13/18 08:20 Glucose 143 mg/dL (70-105) H 05/13/18 08:20 POC Glucose 130 MG/DL (70 - 105) H 05/13/18 07:09 Calcium 7.1 mg/dL (8.6-10.3) L 05/13/18 08:20 Total Bilirubin 0.2 mg/dL (0.3-1.0) L 05/12/18 05:55 AST 45 U/L (13-39) H 05/12/18 05:55 ALT 60 U/L (7-52) H 05/12/18 05:55 Alkaline Phosphatase 67 U/L (34-104) 05/12/18 05:55 Creatine Kinase 51 U/L (30-223) 05/10/18 07:45 Troponin I 0.01 ng/mL (0.01-0.05) 05/10/18 07:45 B-Natriuretic Peptide 72.6 pg/mL (5.0-100.0) 05/10/18 07:45 Total Protein 5.1 gm/dL (6.0-8.3) L 05/12/18 05:55 Albumin 2.1 gm/dL (3.7-5.3) L 05/12/18 05:55 Globulin 3.0 gm/dL 05/12/18 05:55 Albumin/Globulin Ratio 0.7 (1.0-1.8) L 05/12/18 05:55 Triglycerides 110 mg/dL (<150) 05/10/18 07:45 Cholesterol 116 mg/dL (<200) 05/10/18 07:45 LDL Cholesterol Direct 77 mg/dL (75-193) 05/10/18 07:45 HDL Cholesterol 26 mg/dL (23-92) 05/10/18 07:45 Amylase 45 U/L (29-103) 05/10/18 07:45 Lipase 11 U/L (11-82) 05/10/18 07:45 Urine Source CATH 05/10/18 18:37 Urine Color YELLOW 05/10/18 18:37 Urine Clarity HAZY (CLEAR) 05/10/18 18:37 Urine pH 5.5 (4.6 - 8.0) 05/10/18 18:37 Ur Specific [place] 1.020 (1.005-1.030) 05/10/18 18:37 Urine Protein 100 mg/dL (NEGATIVE) H 05/10/18 18:37 Urine Glucose (UA) NEGATIVE mg/dL (NEGATIVE) 05/10/18 18:37 Urine Ketones NEGATIVE mg/dL (NEGATIVE) 05/10/18 18:37 Urine Blood LARGE (NEGATIVE) H 05/10/18 18:37 Urine Nitrate POSITIVE (NEGATIVE) H 05/10/18 18:37 Urine Bilirubin NEGATIVE (NEGATIVE) 05/10/18 18:37 Urine Urobilinogen 1.0 E.U./dL (0.2 - 1.0) 05/10/18 18:37 Ur Leukocyte Esterase MODERATE (NEGATIVE) H 05/10/18 18:37 Urine RBC 10-25 /hpf (0-5) H 05/10/18 18:37 Urine WBC 50-100 /hpf (0-5) H 05/10/18 18:37 Ur Epithelial Cells MODERATE /lpf (FEW) 05/10/18 18:37 Urine Bacteria MODERATE /hpf (NONE SEEN) H 05/10/18 18:37 Phenytoin 7.3 ug/ml (10.0-20.0) L 05/10/18 07:45 - Physical Exam Vitals and I&O: Vital Signs Temp 98.4 F 05/13/18 00:00 Pulse 62 05/13/18 08:14 Resp 18 05/13/18 02:00 BP 145/57 05/13/18 08:14 Pulse Ox 97 05/13/18 00:00 Intake & Output 05/12/18 05/13/18 05/13/18 18:59 06:59 18:59 Intake Total 104 1000 Balance 104 1000 Weight (lbs) 130.635 kg Intake: Intake, IV Amount 104 1000 D5-0.45NS 1,000 ml @ 75 1000 mls/hr IV .[id number] [facility] Rx #:[id number] Gentamicin 160 mg In 104 Sodium Chloride 0.9% 100 ml @ 100 mls/hr IV Q24HR@ 0900 [facility] Rx#:[id number] Oral 0 Other: # Voids 3 # Bowel Movements 0 Weight Source Bedscale Active Medications: Current Medications Gabapentin (Neurontin) 300 mg PO BID [facility] Stop: 07/09/18 16:59 Last Admin: 05/13/18 08:15 Dose: 300 mg Hydromorphone HCl (Dilaudid) 1 mg IVP Q4HR PRN PRN Reason: PAIN Stop: 07/10/18 14:39 Dextrose/Sodium Chloride (D5-0.45ns) 1,000 mls @ 75 mls/hr IV .[id number] [facility] Stop: 07/09/18 12:19 Last Admin: 05/13/18 00:16 Dose: 75 mls/hr Gentamicin Sulfate 160 mg/ (Sodium Chloride) 104 mls @ 100 mls/hr IV Q24HR@ 0900 [facility] Stop: 07/11/18 13:59 Last Admin: 05/13/18 08:19 Dose: 100 mls/hr Insulin Aspart (Novolog Insulin Sliding Scale) 0 units SUBQ ACHS [facility]; Protocol Stop: 07/09/18 20:59 Last Admin: 05/13/18 07:37 Dose: Not Given Lisinopril (Zestril) 10 mg PO DAILY [facility] Stop: 07/09/18 16:59 Last Admin: 05/13/18 08:14 Dose: 10 mg Medroxyprogesterone Acetate (Provera) 10 mg PO DAILY [facility]; Protocol Stop: 05/17/18 08:59 Last Admin: 05/13/18 08:15 Dose: 10 mg Miscellaneous (Gentamicin Iv Per Pharmacy) 1 ea MC PRN [facility] Stop: 07/11/18 11:44 Morphine Sulfate (Morphine) 2 mg IVP Q4HR PRN PRN Reason: Abdominal Pain Stop: 07/09/18 16:53 Mupirocin (Bactroban Oint) 1 appl NS BID [facility] Stop: 05/17/18 09:01 Last Admin: 05/12/18 16:22 Dose: 1 appl Norethindrone Acetate (Aygestin) 5 mg PO DAILY [facility]; Protocol Stop: 07/10/18 08:59 Last Admin: 05/12/18 10:52 Dose: Not Given Ondansetron HCl (Zofran) 4 mg IV Q6H PRN PRN Reason: Nausea / Vomiting Stop: 07/09/18 16:54 Pantoprazole Sodium (Protonix) 40 mg IVP DAILY [facility] Stop: 07/09/18 16:59 Last Admin: 05/13/18 08:16 Dose: 40 mg Phenytoin (Dilantin) 200 mg PO HS [facility] Stop: 07/09/18 20:59 Last Admin: 05/12/18 21:54 Dose: 200 mg Phenytoin (Dilantin) 150 mg PO DAILY [facility] Stop: 07/09/18 16:59 Last Admin: 05/13/18 08:15 Dose: 150 mg Senna (Senna) 17.2 mg PO BID [facility] Stop: 07/09/18 16:59 Last Admin: 05/13/18 08:16 Dose: Not Given Tamsulosin HCl (Flomax) 0.4 mg PO HS [facility] Stop: 07/10/18 20:59 Last Admin: 05/12/18 21:54 Dose: 0.4 mg General: Alert HEENT: Atraumatic, PERRLA Cardiovascular: Regular rate Abdomen: Bowel sounds, Soft, Tender, no Hepatomegaly, no Splenomegaly, no Distended, no Rebound Extremities: no Clubbing, no Cyanosis Skin: no Rash Assessment/Plan - Assessment Assessment: # RUQ pain # Cholelithiasis # Kidney stones # CVA with aphasia Suspect her large gallstone as source of her RUQ pain. She has no biliary dilation, and no evidence of obstructive jaundice by labs. US limited due to body habitus, but again demonstrated is large GB stone. HIDA scan negative for cystic duct obstruction Plan: - suggest surgical consultation to eval for lap burton for symptomatic cholelithiasis. Pt may be transferred to [facility] given her size and inability to perform surgery at [facility] - trend LFTs - protonix - advance diet unless surgery is planned
--- NOTE | 2018-05-13 11:34 | Consultation ---
DATE OF CONSULTATION: 05/12/2018 HISTORY: This is a 72-year-old female patient who has been complaining of pain in the right upper quadrant associated with nausea. The patient was found to have acute cholecystitis and thus the patient is admitted. PAST MEDICAL HISTORY: Hypertension, diabetes mellitus type 2, hyperlipidemia, cerebrovascular accident with late effect, right-sided weakness, seizure disorder, expressive aphasia, and right renal calculi. The patient to continue present care. The patient is having renal calculi. OBJECTIVE: VITAL SIGNS: Blood pressure 138/70, pulse 70, respirations 20, and temperature 98. BMI 26. HEAD: Normocephalic. No lumps or bumps. EYES: Pupils equal and reactive to light. Fundi show AV nicking, sclerae white, conjunctivae pink. NECK: Carotid 2+. HEART: Systolic murmur. S1, S2. No S3, S4. ABDOMEN: Soft. There is mild tenderness in epigastric area. No rebound tenderness. Bowel sounds active. RECTAL: Deferred. EXTREMITIES: Peripheral pulses 2+. No pedal edema. CLINICAL IMPRESSION: Acute cholecystitis, hypertension, diabetes mellitus type 2, hyperlipidemia, cerebrovascular accident with late effect, right-sided weakness, seizure disorder, expressive aphasia, and renal calculi. PLAN: The patient to have surgery. The patient is cleared for surgery. The patient to be clinically followed on Telemetry bed. JOB# [id number]
--- NOTE | 2018-05-13 12:39 | Consultation ---
DATE OF CONSULTATION: 05/13/2018 SURGICAL CONSULTATION REFERRING PHYSICIAN: Dr. Pelayo. REASON FOR CONSULTATION: Second opinion on need for cholecystectomy. Thank you for referring this patient to me. HISTORY OF PRESENT ILLNESS: This is a 72-year-old female who comes in with abdominal pain. The pain was in the upper abdomen on the right side and a surgical consult was done by Dr. Pelayo. She has a gallstone with solitary enlarged. HIDA scan was negative. Laboratory studies shows no liver function abnormality. The laboratory studies are within normal limits. She does have vaginal bleeding for which BIOMETRICS CONSULTANT consultation obtained. PHYSICAL EXAMINATION: GENERAL: She is not tender anymore in the right upper quadrant and she is morbidly obese. The son is at bedside and in view of the negative HIDA scan and the lack of pain at this point. I agree with Dr. Pelayo that there is no urgency for need for gallbladder surgery at this point. We will follow as needed. Thank you, Dr. Aguirre. [facility]# [id number]
--- NOTE | 2018-05-14 09:28 | Progress Notes ---
DATE: SUBJECTIVE: The patient seen and examined. The patient had clinical operations leader vaginal bleeding. The patient was on progestin which was not given according to the pharmacist it was not available. The patient has been seen by enamel buffer as well as surgeon due to her high body habitus, bariatric instruments are not available at [facility], suggested that the patient should have a second opinion and possible transfer to a hospital where the patient can have a bariatric instruments so the patient can have surgery. The patient currently denies any chest pain, shortness of breath, palpitation or dizziness. PHYSICAL EXAMINATION: VITAL SIGNS: See nurse's note. HEENT: No facial asymmetry. NECK: Supple, no JVD. HEART: Regular. CHEST AND LUNGS: Equal in expansion. No expiratory wheezing. ABDOMEN: Soft. No guarding. No rigidity. No palpable mass. EXTREMITIES: No edema. NEUROLOGIC: Remarkable for right-sided weakness noted. CLINICAL IMPRESSION: 1. Vaginal bleeding secondary to uterine fibroid and the patient was on progestin. 2. Right upper quadrant pain secondary to gallstone, large. 3. Nephrolithiasis. 4. Hypertension. 5. Diabetes. 6. Degenerative joint disease. 7. Cerebrovascular accident with residual weakness. 8. Expressive aphasia. 9. Seizure disorder. 10. History of anticoagulation therapy with Xarelto, currently on hold. PLAN: In the view of her complexity, the patient has been given Provera for now and will check the CBC if needed. The patient will be given blood transfusion. Await for a second opinion from the general surgeon and possible transfer to the hospital where the patient can have surgery. Meanwhile, continue other medication as prescribed. We will follow lab and crop consultant's recommendations. JOB# [id number]
== END 2018-05-13 17:18 | disposition short-term general hospital (02) | DRG 444 ==
LOC: ER 06:29 → TELE 12:33 → MSI 05-13 14:40
PROVIDERS: ADMIT Internal Medicine; ATTEND Internal Medicine
DX: K80.00 Calculus of gallbladder with acute cholecystitis without obstruction (principal); E43 Unspecified severe protein-calorie malnutrition; Z68.43 Body mass index [BMI] 50.0-59.9, adult; E87.1 Hypo-osmolality and hyponatremia; N39.0 Urinary tract infection, site not specified; I69.351 Hemiplegia and hemiparesis following cerebral infarction affecting right dominant side; N20.0 Calculus of kidney; E11.9 Type 2 diabetes mellitus without complications; I10 Essential (primary) hypertension; M19.90 Unspecified osteoarthritis, unspecified site; D25.9 Leiomyoma of uterus, unspecified; N93.9 Abnormal uterine and vaginal bleeding, unspecified; I25.10 Atherosclerotic heart disease of native coronary artery without angina pectoris; E78.5 Hyperlipidemia, unspecified; K52.9 Noninfective gastroenteritis and colitis, unspecified; E86.0 Dehydration; G40.909 Epilepsy, unspecified, not intractable, without status epilepticus; I69.322 Dysarthria following cerebral infarction; B96.20 Unspecified Escherichia coli [E. coli] as the cause of diseases classified elsewhere; E66.01 Morbid (severe) obesity due to excess calories; Z16.24 Resistance to multiple antibiotics; Z82.49 Family history of ischemic heart disease and other diseases of the circulatory system; Z79.4 Long term (current) use of insulin
CPT/HCPCS: 36415-UA; 71045-TC; 76700-TC; 78226-TC; 80048-TC; 80053-TC; 80061-TC; 80185-TC; 81001-TC; 82150-TC; 82550-TC; 82948-90; 83690-TC; 83880-TC; 84484-TC; 85025-TC; 85610-TC; 87086-90; 93005; 94760; A9537; C9113; J0295; J0696; J1580; J1815; J7030; Z7610